=== PATIENT | female | born 1985 | race Two or more races ===

== ENCOUNTER 2016-10-22 05:01 | Inpatient (IN) | payer OTHER, MEDICAID ==
[2016-10-19 11:02] LABS: ABSOLUTE BASOPHILS # (AUTO) 0.1 10^3/uL (0.0-0.2); ABSOLUTE EOSINOPHILS # (AUTO) 0.1 10^3/uL (0.0-0.6); ABSOLUTE LYMPHOCYTES (AUTO) 1.8 10^3/uL (0.5-4.7); ABSOLUTE MONOCYTES (AUTO) 0.9 10^3/uL (0.1-1.4); ABSOLUTE NEUT (AUTO) 10.2 10^3/uL (1.7-8.2); BASOPHILS % (AUTO) 0.4 % (0-2); EOSINOPHILS % (AUTO) 0.7 % (0-6); HEMATOCRIT 30.9 % (36.0-47.0); HEMOGLOBIN 10.6 g/dL (12.0-15.5); HGB HCT DIFFERENCE 0.9; MEAN CORPUSCULAR HEMOGLOBIN 27.2 pg (27.0-33.4); MEAN CORPUSCULAR HGB CONC 34.2 g/dL (32.0-36.0); MEAN CORPUSCULAR VOLUME 80 fl (80-97); MONOCYTES % (AUTO) 7.2 % (3-13); RED BLOOD COUNT 3.88 10^6/uL (3.72-5.28); RED CELL DISTRIBUTION WIDTH 14.3 % (11.5-14.0); SEGMENTED NEUTROPHILS % (AUTO) 77.7 % (42-78); WHITE BLOOD COUNT 13.2 10^3/uL (4.0-10.5)
[2016-10-19 11:28] LABS: APPEARANCE,URINE SLIGHTLY-CLOUDY; BILIRUBIN,URINE NEGATIVE (NEGATIVE); GLUCOSE, URINE NEGATIVE (NEGATIVE); KETONES,URINE TRACE mg/dL (NEGATIVE); LEUKOCYTE ESTERASE,URINE NEGATIVE (NEGATIVE); NITRITE,URINE NEGATIVE (NEGATIVE); PROTEIN,URINE 30 mg/dL (NEGATIVE); URINE SPECIFIC GRAVITY 1.023; UROBILINOGEN,URINE NEGATIVE mg/dL (<2.0)
[2016-10-19 11:44] LABS: URINE BARBITURATES SCREEN NEGATIVE; URINE METHADONE SCREEN NEGATIVE; URINE OPIATES LOW NEGATIVE; URINE PHENCYCLIDINE SCREEN NEGATIVE
[~2016-10-22 05:01] MED LIST: CEFAZOLIN 2 GM/D5W RTU 2 GM/50 ML RTUPB IV PRN; RINGERS SOLUTION,LACTATED 1,000 ML IV PRN
[2016-10-22] MEDS ORDERED: CEFAZOLIN INJ 1 GM VIAL ONE (05:10)
[2016-10-22] MEDS ORDERED: ACETAMINOPHEN 100 ML IV ONE (07:08)
[2016-10-22] MEDS ORDERED: METHYLERGONOVINE MALEATE INJ/PF 0.2 MG/1 ML AMPULE ONE (07:08)
[2016-10-22] MEDS ORDERED: FENTANYL CITRATE INJ/PF 100 MCG/2 ML AMPUL ONE ×2 (07:08→09:50)
[2016-10-22] MEDS ORDERED: OXYTOCIN 10 UNIT/ML VIAL ONE (07:08)
[2016-10-22] MEDS ORDERED: MIDAZOLAM 2 MG/2 ML INJ ONE (07:08)
[2016-10-22] MEDS ORDERED: EPHEDRINE SULFATE INJ 50 MG/1 ML AMPULE ONE (07:09)
[2016-10-22] MEDS ORDERED: MEPERIDINE HCL/PF INJ 25 MG/1 ML DISP.SYRIN IV PRN (07:57)
[2016-10-22] MEDS ORDERED: PROMETHAZINE HCL INJ 25 MG/1 ML VIAL IV PRN ×3 (07:57→10:29)
[2016-10-22] MEDS ORDERED: FENTANYL CITRATE INJ/PF 100 MCG/2 ML AMPUL IV PRN ×2 (07:57)
[2016-10-22] MEDS ORDERED: ONDANSETRON HCL INJ/PF 4 MG/2 ML SDV IV PRN (07:57)
[2016-10-22] MEDS: DIPHENHYDRAMINE HCL 50 MG/ML VIAL IV PRN ×2 (09:10→10:07)
[2016-10-22] MEDS ORDERED: DIPHENHYDRAMINE HCL 50 MG/ML VIAL ONE (09:10)
[2016-10-22] MEDS: FENTANYL CITRATE INJ/PF 100 MCG/2 ML AMPUL IV PRN ×2 (09:50→10:20)
--- NOTE | 2016-10-22 10:01 | L&D Flow Sheet ---
LD Flowsheet Datetime Report Generated by CPN: 10/22/2016 10:00 Datetime: 10/22/2016 09:58 NBP Sys/Tracie/Mean (mmHg): 124 (QS system process) : 79 (QS system process) : 96 (QS system process) Pulse: 66 (QS system process) Datetime: 10/22/2016 09:57 Pulse: 69 (QS system process) SpO2 (%): 100 (QS system process) Datetime: 10/22/2016 09:52 Pulse: 76 (QS system process) SpO2 (%): 100 (QS system process) Datetime: 10/22/2016 09:47 Pulse: 63 (QS system process) SpO2 (%): 99 (QS system process) Datetime: 10/22/2016 09:45 Stage of : Recovery (Carmen JASON Woodson) Pain Scale: 3 (Carmen JASON Woodson) Pain Presence: Intermittent (Carmen Woodson RN) Pain Type: Cramping (Carmen Vitrano, RN) Pain Location: Abdomen (Carmen Vitrano, RN) Datetime: 10/22/2016 09:43 NBP Sys/Tracie/Mean (mmHg): 116 (QS system process) : 69 (QS system process) : 85 (QS system process) Pulse: 76 (QS system process) Respirations: 15 (Carmen Vitrano, RN) Datetime: 10/22/2016 09:42 Pulse: 82 (QS system process) SpO2 (%): 99 (QS system process) Datetime: 10/22/2016 09:37 Pulse: 82 (QS system process) SpO2 (%): 98 (QS system process) Datetime: 10/22/2016 09:32 Pulse: 69 (QS system process) SpO2 (%): 98 (QS system process) Datetime: 10/22/2016 09:30 Stage of : Recovery (Carmen Vitrano, RN) Pain Scale: 0 (Carmen Vitrano, RN) Pain Presence: None/Denies (Carmen Vitrano, RN) Pain Type: N/A (Carmen Vitrano, RN) Datetime: 10/22/2016 09:27 Pulse: 71 (QS system process) SpO2 (%): 98 (QS system process) Datetime: 10/22/2016 09:22 Pulse: 72 (QS system process) SpO2 (%): 99 (QS system process) Datetime: 10/22/2016 09:17 Pulse: 71 (QS system process) SpO2 (%): 98 (QS system process) Datetime: 10/22/2016 09:15 Stage of : Recovery (Carmen Vitrano, RN) Pain Scale: 0 (Carmen Vitrano, RN) Pain Presence: None/Denies (Carmen Vitrano, RN) Pain Type: N/A (Carmen Vitrano, RN) Datetime: 10/22/2016 09:12 NBP Sys/Tracie/Mean (mmHg): 125 (QS system process) : 66 (QS system process) : 88 (QS system process) Pulse: 73 (QS system process) Pulse: 67 (QS system process) Respirations: 16 (Carmen Vitrano, RN) SpO2 (%): 98 (QS system process) Datetime: 10/22/2016 09:07 NBP Sys/Tracie/Mean (mmHg): 130 (QS system process) : 69 (QS system process) : 92 (QS system process) Pulse: 67 (QS system process) Pulse: 74 (QS system process) Respirations: 16 (Carmen Vitrano, RN) SpO2 (%): 99 (QS system process) Datetime: 10/22/2016 09:02 NBP Sys/Tracie/Mean (mmHg): 132 (QS system process) : 67 (QS system process) : 91 (QS system process) Pulse: 73 (QS system process) Pulse: 75 (QS system process) Respirations: 16 (Carmen Vitrano, RN) SpO2 (%): 97 (QS system process) Temperature (F): 97.4 (Carmen Vitrano, RN) Temperature (C): 36.3 (QS system process) Temperature Route: Oral (Carmen Vitrano, RN) Datetime: 10/22/2016 09:00 Stage of : Recovery (Carmen Vitrano, RN) Pain Scale: 0 (Carmen Vitrano, RN) Pain Presence: None/Denies (Carmen Vitrano, RN) Pain Type: N/A (Carmen Vitrano, RN) Datetime: 10/22/2016 08:57 NBP Sys/Tracie/Mean (mmHg): 130 (QS system process) : 64 (QS system process) : 90 (QS system process) Pulse: 70 (QS system process) Pulse: 71 (QS system process) SpO2 (%): 98 (QS system process)
[2016-10-22] MEDS ORDERED: SIMETHICONE 80 MG TAB.CHEW PO PRN ×2 (10:29→12:33)
[2016-10-22] MEDS ORDERED: MEASLES,MUMPS&RUBELLA VACC/PF 0.5 ML VIAL SUBCUT PRN ×3 (10:29→12:37)
[2016-10-22] MEDS ORDERED: ACETAMINOPHEN 325 MG TABLET PO PRN ×2 (10:29→12:33)
[2016-10-22] MEDS ORDERED: OXYCODONE-ACETAMINOPHEN 5-325 MG TABLET PO PRN ×3 (10:29→12:33)
[2016-10-22] MEDS ORDERED: OXYTOCIN/NORMAL SALINE 1,000 ML IV PRN ×2 (10:29→12:37)
[2016-10-22] MEDS ORDERED: HYDROMORPHONE HCL INJ/PF 2 MG/ML AMPULE IV PRN ×2 (10:29→12:33)
[2016-10-22] MEDS ORDERED: HYDROMORPHONE HCL INJ/PF 2 MG/ML AMPULE ONE (10:38)
[2016-10-22] MEDS ORDERED: IBUPROFEN 800 MG TABLET PO SCH ×2 (12:00→18:00)
--- NOTE | 2016-10-22 12:01 | L&D Flow Sheet ---
LD Flowsheet Datetime Report Generated by CPN: 10/22/2016 12:00 Datetime: 10/22/2016 11:56 Pulse: 97 (QS system process) SpO2 (%): 99 (QS system process) Datetime: 10/22/2016 11:51 Pulse: 81 (QS system process) SpO2 (%): 98 (QS system process) Datetime: 10/22/2016 11:47 NBP Sys/Tracie/Mean (mmHg): 141 (QS system process) : 73 (QS system process) : 101 (QS system process) Pulse: 70 (QS system process) Datetime: 10/22/2016 11:46 Pulse: 70 (QS system process) SpO2 (%): 99 (QS system process) Datetime: 10/22/2016 10:51 Temperature (F): 97.5 (Carmen Vitrano, RN) Temperature (C): 36.4 (QS system process) Temperature Route: Oral (Carmen Vitrano, RN) Datetime: 10/22/2016 10:47 Pulse: 87 (QS system process) SpO2 (%): 100 (QS system process) Datetime: 10/22/2016 10:45 Vital Signs Stage of : Recovery (Carmen Vitrano, RN) Pain Pain Scale: 3 (Carmen Vitrano, RN) Pain Presence: Intermittent (Carmen Vitrano, RN) Pain Type: Cramping (Carmen Vitrano, RN) Pain Location: Abdomen (Carmen Vitrano, RN) Datetime: 10/22/2016 10:43 NBP Sys/Tracie/Mean (mmHg): 123 (QS system process) : 75 (QS system process) : 93 (QS system process) Pulse: 73 (QS system process) Respirations: 16 (Carmen Vitrano, RN) Datetime: 10/22/2016 10:42 Pulse: 80 (QS system process) SpO2 (%): 100 (QS system process) Datetime: 10/22/2016 10:37 Pulse: 73 (QS system process) SpO2 (%): 100 (QS system process) Datetime: 10/22/2016 10:32 Pulse: 70 (QS system process) SpO2 (%): 100 (QS system process) Datetime: 10/22/2016 10:30 Vital Signs Stage of : Recovery (Carmen Vitrano, RN) Pain Pain Scale: 3 (Carmen Vitrano, RN) Pain Presence: Intermittent (Carmen Vitrano, RN) Pain Type: Cramping (Carmen Vitrano, RN) Pain Location: Abdomen (Carmen Vitrano, RN) Datetime: 10/22/2016 10:28 NBP Sys/Tracie/Mean (mmHg): 128 (QS system process) : 80 (QS system process) : 96 (QS system process) Pulse: 68 (QS system process) Respirations: 16 (Carmen Vitrano, RN) Datetime: 10/22/2016 10:27 Pulse: 72 (QS system process) SpO2 (%): 100 (QS system process) Datetime: 10/22/2016 10:22 Pulse: 69 (QS system process) SpO2 (%): 100 (QS system process) Datetime: 10/22/2016 10:20 Pain Pain Scale: 3 (Carmen Vitrano, RN) Pain Presence: Intermittent (Carmen Vitrano, RN) Pain Type: Cramping; Dull (Carmen Vitrano, RN) Pain Location: Abdomen (Carmen Vitrano, RN) Datetime: 10/22/2016 10:17 Pulse: 67 (QS system process) SpO2 (%): 100 (QS system process) Datetime: 10/22/2016 10:15 Vital Signs Stage of : Recovery (Carmen Vitrano, RN) Pain Pain Scale: 1 (Carmen Vitrano, RN) Pain Presence: Intermittent (Carmen Vitrano, RN) Pain Type: Cramping (Carmen Vitrano, RN) Pain Location: Abdomen (Carmen Vitrano, RN) Datetime: 10/22/2016 10:13 NBP Sys/Tracie/Mean (mmHg): 118 (QS system process) : 77 (QS system process) : 93 (QS system process) Pulse: 80 (QS system process) Respirations: 16 (Carmen Vitrano, RN) Datetime: 10/22/2016 10:12 Pulse: 67 (QS system process) SpO2 (%): 100 (QS system process) Datetime: 10/22/2016 10:07 Pulse: 76 (QS system process) SpO2 (%): 99 (QS system process) Datetime: 10/22/2016 10:02 Pulse: 71 (QS system process) SpO2 (%): 99 (QS system process) Datetime: 10/22/2016 10:00 Vital Signs Stage of : Recovery (Carmen Woodson, RN) Pain Pain Scale: 1 (Carmen Woodson RN) Pain Presence: Intermittent (Carmen Woodson RN) Pain Type: Cramping (Carmen Woodson RN) Pain Location: Abdomen (Carmen Woodson RN)
[2016-10-22] MEDS: OXYCODONE-ACETAMINOPHEN 5-325 MG TABLET PO PRN ×3 (12:11→22:08)
[2016-10-22] MEDS ORDERED: DIPH/PERTUSS(ACELL)/TETANUS VAC/PF 0.5 ML SYR (>=10YO) IM PRN ×2 (12:33→12:37)
[2016-10-22] MEDS ORDERED: OXYTOCIN/NORMAL SALINE 20 UNIT/1,000 ML RTUINJ INJ PRN (12:33)
[2016-10-22] MEDS ORDERED: PROMETHAZINE HCL INJ 25 MG/1 ML VIAL IM PRN (12:33)
[2016-10-22] MEDS ORDERED: DIBUCAINE 1% OINTMENT 28 GM TP PRN (12:37)
[2016-10-22] MEDS ORDERED: BENZOCAINE/MENTHOL AEROSOL SPRAY 56 ML TOP PRN (12:37)
[2016-10-22] MEDS ORDERED: ACETAMINOPHEN WITH CODEINE #3 TABLET PO PRN ×2 (12:37)
[2016-10-22] MEDS ORDERED: ZOLPIDEM TARTRATE 5 MG TABLET PO PRN (12:37)
[2016-10-22] MEDS: KETOROLAC TROMETHAMINE INJ/PF 30 MG/1 ML SDV IV SCH ×2 (13:20→21:24)
[2016-10-22] MEDS ORDERED: ONDANSETRON HCL INJ/PF 4 MG/2 ML SDV ONE (14:36)
[2016-10-22] MEDS ORDERED: DOCUSATE SODIUM 100 MG CAPSULE PO SCH ×2 (18:00)
[2016-10-22] MEDS: FERROUS SULFATE 325 MG TABLET PO SCH (18:08)
[2016-10-22] MEDS: DOCUSATE SODIUM 100 MG CAPSULE PO SCH (18:08)
--- NOTE | 2016-10-22 19:01 | L&D Flow Sheet ---
LD Flowsheet Datetime Report Generated by CPN: 10/22/2016 19:00 Datetime: 10/22/2016 11:56 Pulse: 97 (QS system process) SpO2 (%): 99 (QS system process) Datetime: 10/22/2016 11:51 Pulse: 81 (QS system process) SpO2 (%): 98 (QS system process) Datetime: 10/22/2016 11:47 NBP Sys/Tracie/Mean (mmHg): 141 (QS system process) : 73 (QS system process) : 101 (QS system process) Pulse: 70 (QS system process) Datetime: 10/22/2016 11:46 Pulse: 70 (QS system process) SpO2 (%): 99 (QS system process) Datetime: 10/22/2016 10:51 Temperature (F): 97.5 (Carmen Vitrano, RN) Temperature (C): 36.4 (QS system process) Temperature Route: Oral (Carmen Vitrano, RN) Datetime: 10/22/2016 10:47 Pulse: 87 (QS system process) SpO2 (%): 100 (QS system process) Datetime: 10/22/2016 10:45 Vital Signs Stage of : Recovery (Carmen Vitrano, RN) Pain Pain Scale: 3 (Carmen Vitrano, RN) Pain Presence: Intermittent (Carmen Vitrano, RN) Pain Type: Cramping (Carmen Vitrano, RN) Pain Location: Abdomen (Carmen Vitrano, RN) Datetime: 10/22/2016 10:43 NBP Sys/Tracie/Mean (mmHg): 123 (QS system process) : 75 (QS system process) : 93 (QS system process) Pulse: 73 (QS system process) Respirations: 16 (Carmen Vitrano, RN) Datetime: 10/22/2016 10:42 Pulse: 80 (QS system process) SpO2 (%): 100 (QS system process) Datetime: 10/22/2016 10:37 Pulse: 73 (QS system process) SpO2 (%): 100 (QS system process) Datetime: 10/22/2016 10:32 Pulse: 70 (QS system process) SpO2 (%): 100 (QS system process) Datetime: 10/22/2016 10:30 Vital Signs Stage of : Recovery (Carmen Vitrano, RN) Pain Pain Scale: 3 (Carmen Vitrano, RN) Pain Presence: Intermittent (Carmen Vitrano, RN) Pain Type: Cramping (Carmen Vitrano, RN) Pain Location: Abdomen (Carmen Vitrano, RN) Datetime: 10/22/2016 10:28 NBP Sys/Tracie/Mean (mmHg): 128 (QS system process) : 80 (QS system process) : 96 (QS system process) Pulse: 68 (QS system process) Respirations: 16 (Carmen Vitrano, RN) Datetime: 10/22/2016 10:27 Pulse: 72 (QS system process) SpO2 (%): 100 (QS system process) Datetime: 10/22/2016 10:22 Pulse: 69 (QS system process) SpO2 (%): 100 (QS system process) Datetime: 10/22/2016 10:20 Pain Pain Scale: 3 (Carmen Vitrano, RN) Pain Presence: Intermittent (Carmen Vitrano, RN) Pain Type: Cramping; Dull (Carmen Vitrano, RN) Pain Location: Abdomen (Carmen Vitrano, RN) Datetime: 10/22/2016 10:17 Pulse: 67 (QS system process) SpO2 (%): 100 (QS system process) Datetime: 10/22/2016 10:15 Vital Signs Stage of : Recovery (Carmen Vitrano, RN) Pain Pain Scale: 1 (Carmen Vitrano, RN) Pain Presence: Intermittent (Carmen Vitrano, RN) Pain Type: Cramping (Carmen Vitrano, RN) Pain Location: Abdomen (Carmen Vitrano, RN) Datetime: 10/22/2016 10:13 NBP Sys/Tracie/Mean (mmHg): 118 (QS system process) : 77 (QS system process) : 93 (QS system process) Pulse: 80 (QS system process) Respirations: 16 (Carmen Vitrano, RN) Datetime: 10/22/2016 10:12 Pulse: 67 (QS system process) SpO2 (%): 100 (QS system process) Datetime: 10/22/2016 10:07 Pulse: 76 (QS system process) SpO2 (%): 99 (QS system process) Datetime: 10/22/2016 10:02 Pulse: 71 (QS system process) SpO2 (%): 99 (QS system process) Datetime: 10/22/2016 10:00 Vital Signs Stage of : Recovery (Carmen Vitrano, RN) Pain Pain Scale: 1 (Carmen Vitrano, RN) Pain Presence: Intermittent (Carmen Vitrano, RN) Pain Type: Cramping (Carmen Vitrano, RN) Pain Location: Abdomen (Carmen Vitrano, RN) Datetime: 10/22/2016 09:58 NBP Sys/Tracie/Mean (mmHg): 124 (QS system process) : 79 (QS system process) : 96 (QS system process) Pulse: 66 (QS system process) Respirations: 16 (Carmen Vitrano, RN) Datetime: 10/22/2016 09:57 Pulse: 69 (QS system process) SpO2 (%): 100 (QS system process) Datetime: 10/22/2016 09:52 Pulse: 76 (QS system process) SpO2 (%): 100 (QS system process) Datetime: 10/22/2016 09:47 Pulse: 63 (QS system process) SpO2 (%): 99 (QS system process) Datetime: 10/22/2016 09:45 Vital Signs Stage of : Recovery (Carmen Vitrano, RN) Pain Pain Scale: 3 (Carmen Vitrano, RN) Pain Presence: Intermittent (Carmen Vitrano, RN) Pain Type: Cramping (Carmen Vitrano, RN) Pain Location: Abdomen (Carmen Vitrano, RN) Datetime: 10/22/2016 09:43 NBP Sys/Tracie/Mean (mmHg): 116 (QS system process) : 69 (QS system process) : 85 (QS system process) Pulse: 76 (QS system process) Respirations: 15 (Carmen Vitrano, RN) Datetime: 10/22/2016 09:42 Pulse: 82 (QS system process) SpO2 (%): 99 (QS system process) Datetime: 10/22/2016 09:37 Pulse: 82 (QS system process) SpO2 (%): 98 (QS system process) Datetime: 10/22/2016 09:32 Pulse: 69 (QS system process) SpO2 (%): 98 (QS system process) Datetime: 10/22/2016 09:30 Vital Signs Stage of : Recovery (Carmen Vitrano, RN) Pain Pain Scale: 0 (Carmen Vitrano, RN) Pain Presence: None/Denies (Carmen Vitrano, RN) Pain Type: N/A (Carmen Vitrano, RN) Datetime: 10/22/2016 09:27 Pulse: 71 (QS system process) SpO2 (%): 98 (QS system process) Datetime: 10/22/2016 09:22 Pulse: 72 (QS system process) SpO2 (%): 99 (QS system process) Datetime: 10/22/2016 09:17 Pulse: 71 (QS system process) SpO2 (%): 98 (QS system process) Datetime: 10/22/2016 09:15 Vital Signs Stage of : Recovery (Carmen Vitrano, RN) Pain Pain Scale: 0 (Carmen Vitrano, RN) Pain Presence: None/Denies (Carmen Vitrano, RN) Pain Type: N/A (Carmen Vitrano, RN) Datetime: 10/22/2016 09:12 NBP Sys/Tracie/Mean (mmHg): 125 (QS system process) : 66 (QS system process) : 88 (QS system process) Pulse: 73 (QS system process) Pulse: 67 (QS system process) Respirations: 16 (Carmen Vitrano, RN) SpO2 (%): 98 (QS system process) Datetime: 10/22/2016 09:07 NBP Sys/Tracie/Mean (mmHg): 130 (QS system process) : 69 (QS system process) : 92 (QS system process) Pulse: 67 (QS system process) Pulse: 74 (QS system process) Respirations: 16 (Carmen Vitrano, RN) SpO2 (%): 99 (QS system process) Datetime: 10/22/2016 09:02 NBP Sys/Tracie/Mean (mmHg): 132 (QS system process) : 67 (QS system process) : 91 (QS system process) Pulse: 73 (QS system process) Pulse: 75 (QS system process) Respirations: 16 (Carmen Vitrano, RN) SpO2 (%): 97 (QS system process) Temperature (F): 97.4 (Carmen Vitrano, RN) Temperature (C): 36.3 (QS system process) Temperature Route: Oral (Carmen Vitrano, RN) Datetime: 10/22/2016 09:00 Vital Signs Stage of : Recovery (Carmen Vitrano, RN) Pain Pain Scale: 0 (Carmen Vitrano, RN) Pain Presence: None/Denies (Carmen Vitrano, RN) Pain Type: N/A (Carmen Vitrano, RN) Datetime: 10/22/2016 08:57 NBP Sys/Tracie/Mean (mmHg): 130 (QS system process) : 64 (QS system process) : 90 (QS system process) Pulse: 70 (QS system process) Pulse: 71 (QS system process) SpO2 (%): 98 (QS system process)
[2016-10-23] MEDS: OXYCODONE-ACETAMINOPHEN 5-325 MG TABLET PO PRN ×5 (02:03→22:52)
[2016-10-23] MEDS: KETOROLAC TROMETHAMINE INJ/PF 30 MG/1 ML SDV IV SCH (05:34)
--- NOTE | 2016-10-23 06:01 | L&D General Admission ---
General Admit Datetime Report Generated by CPN: 10/23/2016 06:00 INFORMATION Patient Age: 31 (09/03/2016 17:21:QS system process) CARE Height (in): 62 (10/23/2016 05:46:QS system process) ALLERGIES Medication Allergies: hydrocodone bitartrate/MO/itching (01/20/2014); morphine/MO/became hot (01/20/2014); pertussis vaccine,adsorbed/SV/Anaphylaxis (10/19/2016); banana/SV/Anaphylaxis (10/19/2016); latex/Generalized demetria (10/19/2016) (10/19/2016 09:55:QS system process) DEMOGRAPHICS Address: [address] [place] [id number] (10/18/2016 07:51:QS system process) Zipcode: [phone] (10/18/2016 07:51:QS system process) Home (09/03/2016 17:21:QS system process) Work (09/03/2016 17:21:QS system process) SSN: [id number] (09/03/2016 17:21:QS system process) Next of Kin Name: FRANKIE LOWRY (09/03/2016 17:21:QS system process) Next of Kin (09/03/2016 17:21:QS system process) Next of Kin Relationship: OR (09/03/2016 17:21:QS system process) Date of : 1985 (09/03/2016 17:21:QS system process) Marital Status: Single (09/03/2016 17:21:QS system process) Sex: Female (09/03/2016 17:21:QS system process) Race: Other (09/03/2016 17:21:QS system process) Ethnicity: or (09/03/2016 17:21:QS system process) Lutheran: Sikh (09/03/2016 17:21:QS system process) Feeding Preference: Breast (10/22/2016 14:54:Demi Stroud RN) Benefit of Breast Feed Discussed: Yes (10/22/2016 14:54:Demi Stroud RN) LABS Hemoglobin: 10.6 L (10/19/2016 10:15:QS system process) Hematocrit: 30.9 L (10/19/2016 10:15:QS system process) MCV: 80 (10/19/2016 10:15:QS system process)
[2016-10-23 07:37] LABS: HEMATOCRIT 27.7 % (36.0-47.0); HEMOGLOBIN 9.4 g/dL (12.0-15.5); HGB HCT DIFFERENCE 0.5; MEAN CORPUSCULAR HEMOGLOBIN 27.2 pg (27.0-33.4); MEAN CORPUSCULAR VOLUME 80 fl (80-97); RED BLOOD COUNT 3.47 10^6/uL (3.72-5.28); RED CELL DISTRIBUTION WIDTH 14.8 % (11.5-14.0); WHITE BLOOD COUNT 14.1 10^3/uL (4.0-10.5)
--- NOTE | 2016-10-23 09:05 | PDOC PROGRESS REPORT ---
Subjective-OB Subjective: Post Delivery Day: 31 year old. Denies any needs at this time. Pt doing well, no concerns. well, regular diet, voiding without difficulty. She reports light bleeding and +flatus. Physical Exam (OB) Vital Signs: Temp Pulse Resp BP Pulse Ox 97.7 F 81 20 111/72 100 10/23/16 07:52 10/23/16 07:52 10/23/16 07:52 10/23/16 07:52 10/23/16 07:52 Intake & Output 10/22/16 10/23/16 10/24/16 06:59 06:59 06:59 Intake Total 2200 Output Total 1250 Balance 950 Weight 215 kg - Dressing Removed: Yes Incision: Well Approximated Closure Type: Sutures - Bilateral Tubal Ligation Dressing Removed: Yes Site: Well Approximated - Lochia Lochia Amount: Scant < 10 ml Lochia Color: Rubra/Red - Abdomen Description: Soft, Round Hernia Present: No Fundal Description: Firm, Midline Fundal Height: u/u - u/2 Objective-Diagnostic Laboratory: 10/23/16 06:41 10/23/16 06:41 WBC 14.1 H RBC 3.47 L Hgb 9.4 L Hct 27.7 L MCV 80 MCH 27.2 MCHC 34.0 RDW 14.8 H Plt Count 284 Assessment and Plan(PN) - Assessment and Plan (1) delivery delivered Is this a current diagnosis for this admission?: Yes - Time Spent with Patient Time with patient: Less than 15 minutes Medications reviewed and adjusted accordingly: Yes - Disposition Anticipated Discharge: Home Within: within 48 hours
[2016-10-23] MEDS: FERROUS SULFATE 325 MG TABLET PO SCH ×2 (09:36→17:45)
[2016-10-23] MEDS: PRENATAL VITAMIN W-O CA NO5/FE FUMARATE/FA CAPSULE PO SCH ×2 (09:36→09:38)
[2016-10-23] MEDS: DOCUSATE SODIUM 100 MG CAPSULE PO SCH ×2 (09:36→17:45)
[2016-10-23] MEDS: TOPIRAMATE 25 MG TABLET PO SCH (09:37)
[2016-10-23] MEDS: SENNOSIDES/DOCUSATE 8.6-50 MG 1 EACH TABLET PO SCH (09:37)
[2016-10-23] MEDS ORDERED: PRENATAL VITAMIN W-O CA NO5/FE FUMARATE/FA CAPSULE PO SCH (10:00)
[2016-10-23] MEDS: IBUPROFEN 800 MG TABLET PO SCH ×2 (13:09→21:29)
[2016-10-24] MEDS: IBUPROFEN 800 MG TABLET PO SCH ×2 (05:14→13:13)
[2016-10-24] MEDS: OXYCODONE-ACETAMINOPHEN 5-325 MG TABLET PO PRN ×2 (06:21→11:00)
[2016-10-24] MEDS: DOCUSATE SODIUM 100 MG CAPSULE PO SCH (09:31)
[2016-10-24] MEDS: SENNOSIDES/DOCUSATE 8.6-50 MG 1 EACH TABLET PO SCH (09:32)
[2016-10-24] MEDS: FERROUS SULFATE 325 MG TABLET PO SCH (09:32)
[2016-10-24] MEDS: PRENATAL VITAMIN W-O CA NO5/FE FUMARATE/FA CAPSULE PO SCH ×2 (09:32→09:45)
[2016-10-24] MEDS: TOPIRAMATE 25 MG TABLET PO SCH (09:32)
[2016-10-24] MEDS ORDERED: MAGNESIUM HYDROXIDE SUSP 30 ML UDCUP PO PRN (11:34)
--- NOTE | 2016-10-24 11:51 | PDOC DISCHARGE SUMMARY ---
Final Diagnosis Discharge Date: 10/24/16 - Final Diagnosis (1) Status post repeat low transverse section Is this a current diagnosis for this admission?: Yes (2) Tubal ligation status Is this a current diagnosis for this admission?: Yes (3) Term delivered Is this a current diagnosis for this admission?: Yes (4) Anemia Is this a current diagnosis for this admission?: Yes Discharge Data - Discharge Medication Home Medications: Topiramate [Topamax 100 mg Tablet] 100 mg PO BID 03/20/16 Vit W-Ca,Fe,FA(<1 mg) [ Vitamins] 1 each PO DAILY 10/19/16 Docusate Sodium [Colace 100 mg Capsule] 100 mg PO BID #60 capsule 10/24/16 Ferrous Sulfate [Feosol 325 mg Tablet] 325 mg PO BID #60 tablet 10/24/16 Ibuprofen [Motrin 800 mg Tablet] 800 mg PO Q8HP PRN #90 tablet 10/24/16 Oxycodone HCl/Acetaminophen [Percocet 5-325 mg Tablet] 1 tab PO Q4HP PRN #30 tablet 10/24/16 Reason(s) for Admission: Ceasarean Section-Repeat, Tubal Ligation Procedures: Ultrasound Intrapartum Procedure(s): : Low Cervical, Transverse - Data Baby 1 Female Home with Mother: Yes Complications: No - Diagnosis Test Laboratory: Temp Pulse Resp BP Pulse Ox 98.2 F 88 16 115/57 L 96 10/24/16 09:08 10/24/16 09:08 10/24/16 09:08 10/24/16 09:08 10/24/16 09:08 10/19/16 10/19/16 10/23/16 10:15 10:15 06:41 RBC 3.88 3.47 L Hgb 10.6 L 9.4 L Hct 30.9 L 27.7 L Urine Opiates Screen NEGATIVE - Discharge information/Instructions Discharge Activity: Activity As Tolerated, Balance Activity w/Rest, No Driving, No Lifting Over 10 Pounds, No Lifting/Push/Pulling, Pelvic Rest, Slowly Increase Activity Discharge Diet: Regular Disposition: HOME, SELF-CARE Follow up with: [facility] in: 1, Weeks - incision check Physical Exam (OB) Vital Signs: Temp Pulse Resp BP Pulse Ox 98.2 F 88 16 115/57 L 96 10/24/16 09:08 10/24/16 09:08 10/24/16 09:08 10/24/16 09:08 10/24/16 09:08 Intake & Output 10/23/16 10/24/16 10/25/16 06:59 06:59 06:59 Intake Total 2200 Output Total 1250 Balance 950 - General General Appearance: Appears well In distress: None - Dressing Removed: Yes Incision: Open Closure Type: Sutures - Bilateral Tubal Ligation Dressing Removed: Yes Site: Well Approximated - Lochia Lochia Amount: Small 10-25 ml Lochia Color: Rubra/Red - Abdomen Description: Soft, Round Hernia Present: No Fundal Description: Firm, Midline Fundal Height: u/u - u/2 - Respiratory Respiratory Status: No respiratory distress - Extremities Upper extremity: Normal inspection Lower extremities: Normal inspection - Neurological Cognition: Normal Orientation: AAOx4 - Psychological Associated symptoms: Normal affect, Normal mood - bonding well with baby
[2016-10-24 12:48] VITALS: BP 130/70
--- NOTE | 2016-10-25 10:48 | Operative Report ---
Operative Report DATE OF SURGERY: 10/22/16 OPERATION: RELTCS with BTL ANESTHESIA: Spinal PROCEDURE: PREOPERATIVE DIAGNOSIS: undelivered at 39 weeks, multiparity, Undesired Fertility POSTOPERATIVE DIAGNOSIS: Same as above delivered Procedure: RELTCS with BTL (Filschie Clips) Acute Care Assistant:[None] Anesthesia: Spinal Anesthesia provider: [Dr. Flowers, Zari Ogden, BRUSH FINISHER] Estimated blood loss: [700ml] Urine output: [300ml] IV fluids: [1100ml] Complications: [None] Specimens: [None] Findings: [VFI delivered from cephalic presentation, no nuchal cord. weight 6# 12oz, Apgars 8/9, Delivery time 0809.] Indications: [31yo at 39wks brook presents for RELTCS and Bilateral Tubal Ligation due to history of prior section and undesired fertility. Risks, benefits, alternatives reviewed with patient and she desires to proceed. She declined TOLAC. ] Procedure: The patient was taken to the operating room where spinal anesthesia was obtained and found to be adequate. She was then prepped and draped in the normal sterile fashion and placed in the dorsal supine position with a leftward tilt. A Pfannenstiel skin incision was then made and carried through to the underlying layers of the fascia with the scalpel. The fascia was incised in the midline and the incision extended laterally with the Feldman scissors. The superior aspect of the fascial incision was then grasped with [place] clamps elevated and the underlying rectus muscles dissected off [bluntly]. Attention was then turned to the inferior aspect of the fascial incision which in a similar fashion was grasped, tented up with [place] clamps, and the rectus muscles dissected off [bluntly]. The rectus muscles were then in the midline and the peritoneum at the amount identified and entered [bluntly]. The peritoneal incision was then extended superiorly and inferiorly with good visualization of the bladder. The bladder blade was inserted and the vesicouterine peritoneum identified grasped with Indian pickups and entered sharply with the Metzenbaum scissors. This incision was then extended laterally with the Metzenbaum scissors and a bladder flap created digitally. The bladder blade was then reinserted and the lower uterine segment incised in a transverse fashion with the scalpel. The uterine incision was then extended bluntly. The bladder blade was removed and the 's head was delivered from cephalic presentation atraumatically. The nose and mouth were suctioned and the cord doubly clamped and cut. And the was handed off to waiting pediatricians. The placenta was then delivered spontaneously and the uterus exteriorized and cleared of all clots and debris. The uterine incision was then repaired with 1- 0 Vicryl in a running locked fashion. A second layer of the same suture was used to obtain hemostasis via imbrication of the initial layer. The bladder flap was then repaired with 3-0 chromic in a running fashion. The uterus was returned to the patient's abdomen. The gutters were cleared of all clots and debris. All operative sites were noted to be hemostatic. The rectus muscles were reapproximated with interrupted 2-0 chromic. The fascia was reapproximated with 0 Vicryl in a running fashion from each lateral edge to the midline. The skin was closed with 3-0 Monocryl in a running subcuticular fashion with overlying Dermabond for additional dressing as well as wound closure. The patient tolerated the procedure well. Sponge lap needle and instrument counts are correct times 2. 2 g of Ancef were given prior to skin incision. The patient was taken to the recovery area awake and in stable condition.
== END 2016-10-24 14:03 | disposition home or self-care (01) | DRG 766 ==
LOC: 2S 05:01
PROVIDERS: ADMIT Student in an Organized Health Care Education/Training Program; ATTEND Student in an Organized Health Care Education/Training Program
PROC: 0UL70CZ Occlusion of Bilateral Fallopian Tubes with Extraluminal Device, Open Approach (ICD-10-PCS; 2016-10-22)
PROC: 10D00Z1 Extraction of Products of Conception, Low, Open Approach (ICD-10-PCS; principal; 2016-10-22 07:45)
DX: O34.211 Maternal care for low transverse scar from previous cesarean delivery (principal); O99.02 Anemia complicating childbirth; O99.334 Smoking (tobacco) complicating childbirth; F17.210 Nicotine dependence, cigarettes, uncomplicated; N85.8 Other specified noninflammatory disorders of uterus; Z3A.39 39 weeks gestation of pregnancy; Z37.0 Single live birth; Z30.2 Encounter for sterilization
CPT/HCPCS: 1961; 36415; 59025; 80307; 81001; 85025; 85027; 86850; 86900; 86901; 94799; J0131; J0690; J1170; J1200; J1885; J2210; J2250; J2405; J2590; J3010; J3490

== ENCOUNTER 2018-10-23 08:49 | Emergency (ER) | payer MEDICAID, OTHER ==
[2018-10-23] MEDS ORDERED: FENTANYL CITRATE INJ/PF 100 MCG/2 ML AMPUL IV ONE (10:35)
--- NOTE | 2018-10-23 10:38 | ER Document Report ---
ED Medical Screen (RME) - General Chief Complaint: Chest Pain Stated Complaint: CHEST PAIN Time Seen by Provider: 10/23/18 10:25 Mode of Arrival: Ambulatory Information source: Patient Notes: 33-year-old female presents emergency department with complaints of chest pain shortness of breath. Patient states that a week ago she injured herself at work. She states that she pulled a cabinet onto her left shoulder. She is been following up with Workmen's Comp. The Workmen's Comp. physician is ordering an MRI of the left shoulder. Patient states that today she began having pain in the left chest. She describes the pain as a sharp and stabbing sensation. Pain starts in the left anterior chest and wraps around to the back. She states that it is worse with deep breaths, movement, palpation. Patient states that the pain that she is having today feels different from when she injured herself a few days ago. She denies any nausea, vomiting, diaphoresis. Patient states that she feels very anxious because she feels like she is having a heart attack. Patient denies any history of hypertension, hyperlipidemia, coronary artery disease, diabetes. She does smoke. I have greeted and performed a rapid initial assessment of this patient. A comprehensive ED assessment and evaluation of the patient, analysis of test results and completion of the medical decision making process will be conducted by additional ED providers. PHYSICAL EXAMINATION: GENERAL: Well-appearing, well-nourished and in no acute distress. HEAD: Atraumatic, normocephalic. EYES: Pupils equal round extraocular movements intact, conjunctiva are normal. ENT: Nares patent NECK: Normal range of motion LUNGS: No respiratory distress Musculoskeletal: L anterior chest wall tenderness to palpation. NEUROLOGICAL: Normal speech, normal gait. PSYCH: Normal mood, normal affect. SKIN: Warm, Dry, normal turgor, no rashes or lesions noted. TRAVEL OUTSIDE OF THE [place] IN LAST 30 DAYS: No - Related Data Allergies/Adverse Reactions: banana Allergy (Severe, Verified 10/19/16 09:55) Anaphylaxis pertussis vaccine,adsorbed [Pertussis Vaccine,Adsorbed] Allergy (Severe, Verified 10/19/16 09:55) Anaphylaxis hydrocodone bitartrate [From Vicodin] Allergy (Intermediate, Verified 01/20/14 18:09) itching morphine [Morphine] Allergy (Intermediate, Verified 01/20/14 18:09) became hot latex Allergy (Verified 10/19/16 09:55) Generalized rash Past Medical History - Social History Chew tobacco use (# tins/day): No Frequency of alcohol use: None Drug Abuse: None - Past Medical History Cardiac Medical History: Reports: Hx Hypertension - preeclampsia with prior Denies: Hx Pulmonary Embolism, Hx Heart Murmur Pulmonary Medical History: Reports: Hx Asthma - as child Denies: Hx Sleep Apnea, Hx Tuberculosis Neurological Medical History: Reports: Hx Migraine. Denies: Hx Cerebrovascular Accident, Hx Seizures Endocrine Medical History: Denies: Hx Hyperthyroidism, Hx Hypothyroidism Renal/ Medical History: Reports: Hx Ovarian Cysts. Denies: Hx Kidney Stones, Hx Peritoneal Dialysis, Hx Pelvic Inflammatory Disease Malignancy Medical History: Denies: Hx Breast Cancer, Hx Cervical Cancer, Hx Ovarian Cancer GI Medical History: Reports: Hx Gastroesophageal Reflux Disease - during . Denies: Hx Hiatal Hernia, Hx Ulcer Musculoskeltal Medical History: Denies Hx Fibromyalgia Psychiatric Medical History: Reports: Hx Bipolar Disorder, Hx Depression Denies: Hx Post Traumatic Stress Disorder, Hx Schizophrenia Traumatic Medical History: Denies: Hx Fractures Infectious Medical History: Denies: Hx HIV, Hx MRSA Past Surgical History: Reports: Hx Section - x2, Hx Tubal Ligation - Immunizations Immunizations up to date: Yes Hx Diphtheria, Pertussis, Tetanus Vaccination: Yes Physical Exam - Vital signs Vitals: Temp Pulse Resp BP Pulse Ox 98.2 F 65 15 125/89 H 100 10/23/18 09:00 10/23/18 09:00 10/23/18 09:00 10/23/18 09:00 10/23/18 09:00 Course - Vital Signs Vital signs: Temp Pulse Resp BP Pulse Ox 98.2 F 65 15 125/89 H 100 10/23/18 09:00 10/23/18 09:00 10/23/18 09:00 10/23/18 09:00 10/23/18 09:00
--- NOTE | 2018-10-23 11:11 | EKG REPORT ---
SEVERITY:- OTHERWISE NORMAL ECG - SINUS TACHYCARDIA : Confirmed by: Que Adler 23-Oct-2018 11:11:04
[2018-10-23 11:30] LABS: ABSOLUTE BASOPHILS # (AUTO) 0.1 10^3/uL (0.0-0.2); ABSOLUTE EOSINOPHILS # (AUTO) 0.2 10^3/uL (0.0-0.6); ABSOLUTE LYMPHOCYTES (AUTO) 2.5 10^3/uL (0.5-4.7); ABSOLUTE MONOCYTES (AUTO) 0.4 10^3/uL (0.1-1.4); ABSOLUTE NEUT (AUTO) 5.7 10^3/uL (1.7-8.2); BASOPHILS % (AUTO) 0.8 % (0-2); EOSINOPHILS % (AUTO) 1.8 % (0-6); HEMATOCRIT 39.4 % (36.0-47.0); HEMOGLOBIN 13.5 g/dL (12.0-15.5); MEAN CORPUSCULAR HEMOGLOBIN 27.7 pg (27.0-33.4); MEAN CORPUSCULAR HGB CONC 34.4 g/dL (32.0-36.0); MEAN CORPUSCULAR VOLUME 81 fl (80-97); MONOCYTES % (AUTO) 4.6 % (3-13); PLATELET COUNT 392 10^3/uL (150-450); RED BLOOD COUNT 4.89 10^6/uL (3.72-5.28); RED CELL DISTRIBUTION WIDTH 14.1 % (11.5-14.0); SEGMENTED NEUTROPHILS % (AUTO) 64.8 % (42-78); TOTAL CELLS COUNTED % (AUTO) 100 %; WHITE BLOOD COUNT 8.8 10^3/uL (4.0-10.5)
[2018-10-23 11:33] LABS: AMORPHOUS SEDIMENT,URINE TRACE /HPF; APPEARANCE,URINE SLIGHTLY-CLOUDY; BILIRUBIN,URINE NEGATIVE (NEGATIVE); COLOR,URINE YELLOW; GLUCOSE, URINE NEGATIVE (NEGATIVE); KETONES,URINE TRACE mg/dL (NEGATIVE); LEUKOCYTE ESTERASE,URINE TRACE (NEGATIVE); NITRITE,URINE NEGATIVE (NEGATIVE); PROTEIN,URINE NEGATIVE (NEGATIVE); URINE SPECIFIC GRAVITY 1.006; UROBILINOGEN,URINE NEGATIVE mg/dL (<2.0)
--- NOTE | 2018-10-23 11:42 | RADIOLOGY REPORT (SQ) ---
EXAM DESCRIPTION: CHEST SINGLE VIEW COMPLETED DATE/TIME: 10/23/2018 11:29 am REASON FOR STUDY: shortness of breath COMPARISON: Chest films 01/20/2014, 01/22/2008 EXAM PARAMETERS: NUMBER OF VIEWS: One view. TECHNIQUE: Single frontal radiographic view of the chest acquired. RADIATION DOSE: NA LIMITATIONS: None. FINDINGS: LUNGS AND PLEURA: No opacities, masses or pneumothorax. No pleural effusion. MEDIASTINUM AND HILAR STRUCTURES: No masses. Contour normal. HEART AND VASCULAR STRUCTURES: Heart normal in size. Normal vasculature. BONES: No acute findings. HARDWARE: None in the chest. OTHER: No other significant finding. IMPRESSION: NO ACUTE RADIOGRAPHIC FINDING IN THE CHEST. TECHNICAL DOCUMENTATION: JOB ID: [id number]- All Rights Reserved Reading location - IP/workstation name: [email or web address]
[2018-10-23 11:45] LABS: ALANINE AMINOTRANSFERASE 16 U/L (9-52); ALBUMIN 4.8 g/dL (3.5-5.0); ALKALINE PHOSPHATASE 83 U/L (38-126); ANION GAP 13 (5-19); ASPARTATE AMINO TRANSFERASE 21 U/L (14-36); BILIRUBIN,DIRECT 0.2 mg/dL (0.0-0.4); BILIRUBIN,TOTAL 0.3 mg/dL (0.2-1.3); BLOOD UREA NITROGEN 8 mg/dL (7-20); CARBON DIOXIDE 22 mmol/L (22-30); CHLORIDE 111 mmol/L (98-107); GLUCOSE 88 mg/dL (75-110); POTASSIUM 4.8 mmol/L (3.6-5.0); SODIUM 145.6 mmol/L (137-145); TOTAL PROTEIN 8.2 g/dL (6.3-8.2)
--- NOTE | 2018-10-23 11:55 | ER Document Report ---
ED General - General Chief Complaint: Chest Pain Stated Complaint: CHEST PAIN Time Seen by Provider: 10/23/18 10:25 Mode of Arrival: Ambulatory Information source: Patient TRAVEL OUTSIDE OF THE [place] IN LAST 30 DAYS: No - HPI Patient complains to provider of: Chest pain Onset: This morning Onset/Duration: Sudden, Better Quality of pain: Pressure Severity: Moderate Associated symptoms: Shortness of breath Exacerbated by: Denies Relieved by: Denies Similar symptoms previously: Yes - States she has had anxiety attacks in the past that feels similar Notes: Patient presents to the emergency department for evaluation of chest pain. She describes it as a pressure with radiation to the back. She did have some associated shortness of breath. She states she woke with it, and it worsened without any clear aggravating factors. It is also improved without any clear alleviating factors. She states it feels similar to her anxiety in the past. She admits to depression as well as increased stress at work. She is taking her medications as prescribed. She denies any suicidal or homicidal ideation. - Related Data Allergies/Adverse Reactions: banana Allergy (Severe, Verified 10/19/16 09:55) Anaphylaxis pertussis vaccine,adsorbed [Pertussis Vaccine,Adsorbed] Allergy (Severe, Verified 10/19/16 09:55) Anaphylaxis hydrocodone bitartrate [From Vicodin] Allergy (Intermediate, Verified 01/20/14 18:09) itching morphine [Morphine] Allergy (Intermediate, Verified 01/20/14 18:09) became hot latex Allergy (Verified 10/19/16 09:55) Generalized rash Home Medications: List reviewed, please see attached Past Medical History - General Information source: Patient - Social History Smoking Status: Current Every Day Smoker Chew tobacco use (# tins/day): No Frequency of alcohol use: None Drug Abuse: None Family History: Reviewed & Not Pertinent, DM, Hypertension Patient has suicidal ideation: No Patient has homicidal ideation: No - Past Medical History Cardiac Medical History: Reports: Hx Hypertension - preeclampsia with prior Denies: Hx Pulmonary Embolism, Hx Heart Murmur Pulmonary Medical History: Reports: Hx Asthma - as child Denies: Hx Sleep Apnea, Hx Tuberculosis Neurological Medical History: Reports: Hx Migraine. Denies: Hx Cerebrovascular Accident, Hx Seizures Endocrine Medical History: Denies: Hx Hyperthyroidism, Hx Hypothyroidism Renal/ Medical History: Reports: Hx Ovarian Cysts. Denies: Hx Kidney Stones, Hx Peritoneal Dialysis, Hx Pelvic Inflammatory Disease Malignancy Medical History: Denies: Hx Breast Cancer, Hx Cervical Cancer, Hx Ovarian Cancer GI Medical History: Reports: Hx Gastroesophageal Reflux Disease - during . Denies: Hx Hiatal Hernia, Hx Ulcer Musculoskeletal Medical History: Denies Hx Fibromyalgia Psychiatric Medical History: Reports: Hx Bipolar Disorder, Hx Depression Denies: Hx Post Traumatic Stress Disorder, Hx Schizophrenia Traumatic Medical History: Denies: Hx Fractures Infectious Medical History: Denies: Hx HIV, Hx MRSA Past Surgical History: Reports: Hx Section - x2, Hx Tubal Ligation - Immunizations Immunizations up to date: Yes Hx Diphtheria, Pertussis, Tetanus Vaccination: Yes Hx Pneumococcal Vaccination: 06/16/13 Review of Systems - Review of Systems Constitutional: No symptoms reported EENT: No symptoms reported Cardiovascular: Chest pain Respiratory: Short of breath Gastrointestinal: No symptoms reported Genitourinary: No symptoms reported Female Genitourinary: No symptoms reported Skin: No symptoms reported Neurological/Psychological: Depression - Patient states this is stable, Anxiety Physical Exam - Vital signs Vitals: Temp Pulse Resp BP Pulse Ox 98.2 F 65 15 125/89 H 100 10/23/18 09:00 10/23/18 09:00 10/23/18 09:00 10/23/18 09:00 10/23/18 09:00 Interpretation: Normal - General General appearance: Appears well In distress: None - HEENT Head: Normocephalic, Atraumatic Pupils: PERRL - Respiratory Respiratory status: No respiratory distress Chest status: Tender - Tender to the left of the second and third intercostal space Breath sounds: Normal - Cardiovascular Rhythm: Regular Murmur: No - Abdominal Inspection: Normal Bowel sounds: Normal Tenderness: Nontender - Extremities General lower extremity: Normal inspection, Nontender, Normal color - Neurological Neuro grossly intact: Yes Orientation: AAOx4 - Psychological Associated symptoms: Normal affect, Normal mood - Skin Skin Temperature: Warm Skin Moisture: Dry Course - Re-evaluation Re-evalutation: 10/23/18 12:29 Patient reevaluated. All of her pain is resolved. She has a normal EKG. She has normal cardiac enzymes. We discussed at great length the possible etiologies of the chest pain. She voiced understanding to the fact that I cannot entirely rule out the existence of coronary artery disease. Her only significant risk factor is smoking. I strongly encouraged her to quit smoking. She voiced understanding to these concerns. We will have her follow-up with her primary care physician next week. She is to return to the emergency department with worsening or new concerning symptoms of any sort. 10/23/18 12:31 - Vital Signs Vital signs: Temp Pulse Resp BP Pulse Ox 98.2 F 65 15 125/89 H 100 10/23/18 09:00 10/23/18 09:00 10/23/18 09:00 10/23/18 09:00 10/23/18 09:00 - Laboratory Result Diagrams: 10/23/18 10:54 10/23/18 10:54 Laboratory results interpreted by me: 10/23/18 10/23/18 10/23/18 10:54 10:54 10:54 RDW 14.1 H Sodium 145.6 H Chloride 111 H Urine Ketones TRACE H Urine Blood SMALL H Ur Leukocyte Esterase TRACE H - Diagnostic Test Radiology reviewed: Image reviewed, Reports reviewed - EKG Interpretation by Me EKG shows normal: Sinus rhythm Rate: Normal Additional EKG results interpreted by me: 10/23/18 11:57 EKG interpreted by myself as showing a sinus mechanism with a rate of 85 bpm. Normal axis and intervals, no acute ST changes concerning for ischemia or infarction. Discharge - Discharge Clinical Impression: Chest pain Qualifiers: Chest pain type: unspecified Qualified Code(s): R07.9 - Chest pain, unspecified Condition: Good Disposition: HOME, SELF-CARE Instructions: Chest Wall Pain ([facility]), Chest Pain of Unclear Cause ([facility]) Forms: Smoking Cessation Education
[2018-10-23 13:22] VITALS: BP 105/79
== END 2018-10-23 12:10 | disposition home or self-care (01) ==
LOC: ER 08:49
DX: R07.9 Chest pain, unspecified (principal); R06.02 Shortness of breath; Z88.6 Allergy status to analgesic agent; Z91.040 Latex allergy status; Z98.51 Tubal ligation status
CPT/HCPCS: 93005; 99284; 96374; 36415; 85025; 81025; 80053; 81001; 84484; 71045; 93010; J3010

== ENCOUNTER 2019-08-10 08:20 | Emergency (ER) | payer OTHER, MEDICAID ==
[2019-08-10 08:39] VITALS: BP 102/69
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
[2019-08-10] MEDS ORDERED: OXYCODONE-ACETAMINOPHEN 5-325 MG TABLET PO ONE (11:19)
[2019-08-10 12:28] LABS: ABSOLUTE EOSINOPHILS # (AUTO) 0.1 10^3/uL (0.0-0.6); ABSOLUTE LYMPHOCYTES (AUTO) 2.1 10^3/uL (0.5-4.7); ABSOLUTE MONOCYTES (AUTO) 0.7 10^3/uL (0.1-1.4); ABSOLUTE NEUT (AUTO) 11.7 10^3/uL (1.7-8.2); BASOPHILS % (AUTO) 0.3 % (0-2); EOSINOPHILS % (AUTO) 0.4 % (0-6); HEMOGLOBIN 12.8 g/dL (12.0-15.5); LYMPHOCYTES % (AUTO) 14.2 % (13-45); MEAN CORPUSCULAR HEMOGLOBIN 27.2 pg (27.0-33.4); MEAN CORPUSCULAR HGB CONC 33.6 g/dL (32.0-36.0); MEAN CORPUSCULAR VOLUME 81 fl (80-97); MONOCYTES % (AUTO) 4.9 % (3-13); PLATELET COUNT 314 10^3/uL (150-450); RED BLOOD COUNT 4.69 10^6/uL (3.72-5.28); RED CELL DISTRIBUTION WIDTH 14.9 % (11.5-14.0); SEGMENTED NEUTROPHILS % (AUTO) 80.2 % (42-78); TOTAL CELLS COUNTED % (AUTO) 100 %; WHITE BLOOD COUNT 14.6 10^3/uL (4.0-10.5)
[2019-08-10 12:45] LABS: ANION GAP 9 (5-19); BLOOD UREA NITROGEN 4 mg/dL (7-20); CALCIUM 9.7 mg/dL (8.4-10.2); CARBON DIOXIDE 26 mmol/L (22-30); CHLORIDE 105 mmol/L (98-107); GLUCOSE 89 mg/dL (75-110); POTASSIUM 3.8 mmol/L (3.6-5.0)
[2019-08-10 12:58] LABS: APPEARANCE,URINE CLEAR; BILIRUBIN,URINE NEGATIVE (NEGATIVE); COLOR,URINE YELLOW; GLUCOSE, URINE NEGATIVE (NEGATIVE); KETONES,URINE TRACE mg/dL (NEGATIVE); PROTEIN,URINE NEGATIVE (NEGATIVE); URINE SPECIFIC GRAVITY 1.008; UROBILINOGEN,URINE NEGATIVE mg/dL (<2.0)
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
--- NOTE | 2019-08-10 23:50 | EKG REPORT ---
SEVERITY:- ABNORMAL ECG - SINUS RHYTHM NONSPECIFIC T ABNORMALITIES, INFERIOR LEADS : Confirmed by: Que Adler 10-Aug-2019 23:49:43
== END 2019-08-10 14:33 | disposition home or self-care (01) ==
LOC: ER 08:20
DX: S80.01XA Contusion of right knee, initial encounter (principal); S70.212A Abrasion, left hip, initial encounter; S30.811A Abrasion of abdominal wall, initial encounter; S20.312A Abrasion of left front wall of thorax, initial encounter; S00.81XA Abrasion of other part of head, initial encounter; S80.219A Abrasion, unspecified knee, initial encounter; R07.9 Chest pain, unspecified; R10.30 Lower abdominal pain, unspecified; M25.512 Pain in left shoulder; M25.561 Pain in right knee; V43.52XA Car driver injured in collision with other type car in traffic accident, initial encounter; W22.11XA Striking against or struck by driver side automobile airbag, initial encounter; Z87.892 Personal history of anaphylaxis; Z91.018 Allergy to other foods; Z88.7 Allergy status to serum and vaccine; Z88.5 Allergy status to narcotic agent; Z88.6 Allergy status to analgesic agent; Z91.040 Latex allergy status
CPT/HCPCS: 36415; 71260; 72125; 74177; 80048; 81001; 81025; 85025; 93005; 93010; 99285

== ENCOUNTER 2019-08-24 20:03 | Emergency (ER) | payer OTHER, MEDICAID ==
[2019-08-24] MEDS ORDERED: ACETAMINOPHEN 325 MG TABLET PO ONE (21:03)
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
--- NOTE | 2019-08-24 22:06 | RADIOLOGY REPORT (SQ) ---
EXAM DESCRIPTION: XR KNEE 4 OR MORE VIEWS COMPLETED DATE/TME: 08/24/2019 21:03 CLINICAL HISTORY: 34 years, Female, pain and swelling COMPARISON: 08/10/2019 right knee NUMBER OF VIEWS: 4 TECHNIQUE: 4 view right knee LIMITATIONS: None. FINDINGS: Negative for fracture or dislocation. Soft tissues are unremarkable IMPRESSION: Negative exam copyright 2010 [employer]- All Rights Reserved
[2019-08-24 22:28] VITALS: BP 121/72
== END 2019-08-24 22:29 | disposition home or self-care (01) ==
LOC: ER 20:03
DX: S80.01XD Contusion of right knee, subsequent encounter (principal); S30.1XXA Contusion of abdominal wall, initial encounter; V49.9XXA Car occupant (driver) (passenger) injured in unspecified traffic accident, initial encounter; F17.210 Nicotine dependence, cigarettes, uncomplicated; Z87.892 Personal history of anaphylaxis; Z91.018 Allergy to other foods; Z88.7 Allergy status to serum and vaccine; Z88.6 Allergy status to analgesic agent; Z88.5 Allergy status to narcotic agent; Z91.040 Latex allergy status
CPT/HCPCS: 99283

== ENCOUNTER → 2020-06-21 | Outpatient (CLI) | payer MEDICAID ==
--- NOTE | 2020-06-21 14:43 | ER RDC ASSESSMENT REPORT ---
Intake - In the Last 14 days Have you traveled outside [place]?: No Have you been in close contact with someone CONFIRMED: Yes Worked in Healthcare?: No - Symptoms Subjective Fever([place] feverish): No Chills: No Muscule Aches: No Runny Nose: No Sore Throat: No Cough (New or worsening chronic cough): No Shortness of breath: No Nausea or Vomiting: No Headache: No Abdominal Pain: No Diarrhea(3 or more loose stools in last 24 hours): No - Do you have any of the following Chronic lung disease: Asthma or emphysema or COPD: Yes Cystic Fibrosis: No Diabetes: No High Blood Pressure: No Cardiovascular Disease: No Chronic Kidney Disease: No Chronic Liver Disease: No Chronic blood disorder like Sickle Cell Disease: No Weak immune system due to disease or medication: No Neurologic condition that limits movement: No Developmental delay - Moderate to Severe: No Recent (within past 2 weeks) or current : No Morbid Obesity (>100 pounds over ideal weight): No - Objective Temperature: 97.3 F Pulse Rate: 105 Respiratory Rate: 16 Blood Pressure: 118/80 O2 Sat by Pulse Oximetry: 99 Objective: Given above, testing performed: covid Disposition: Home; Selfcare General - General Stated Complaint: covid testing Time Seen by Provider: 06/21/20 14:00 Mode of Arrival: Ambulatory Information source: Patient - HPI Notes: Patient presents to clinic for COVID-19 testing after coming in close contact with another COVID 19 positive individual. Patient is asymptomatic. They deny any cough, shortness of breath, fever, chills, muscle aches, rhinorrhea, sore throat, nausea or vomiting, headache, abdominal pain or diarrhea. Patient has no acute medical concerns. - Related Data Allergies/Adverse Reactions: banana Allergy (Severe, Verified 10/19/16 09:55) Anaphylaxis pertussis vaccine,adsorbed [Pertussis Vaccine,Adsorbed] Allergy (Severe, Verified 10/19/16 09:55) Anaphylaxis hydrocodone bitartrate [From Vicodin] Allergy (Intermediate, Verified 01/20/14 18:09) itching morphine [Morphine] Allergy (Intermediate, Verified 01/20/14 18:09) became hot latex Allergy (Verified 10/19/16 09:55) Generalized rash Past Medical History - General Information source: Patient - Social History Smoking Status: Never Smoker Family History: Reviewed & Not Pertinent, DM, Hypertension - Past Medical History Cardiac Medical History: Reports: Hx Hypertension - preeclampsia with prior Denies: Hx Pulmonary Embolism, Hx Heart Murmur Pulmonary Medical History: Reports: Hx Asthma - as child Denies: Hx Sleep Apnea, Hx Tuberculosis EENT Medical History: Reports: None Neurological Medical History: Reports: Hx Migraine. Denies: Hx Cerebrovascular Accident, Hx Seizures Endocrine Medical History: Reports: None. Denies: Hx Hyperthyroidism, Hx Hypothyroidism Renal/ Medical History: Reports: Hx Ovarian Cysts. Denies: Hx Kidney Stones, Hx Peritoneal Dialysis, Hx Pelvic Inflammatory Disease Malignancy Medical History: Reports: None. Denies: Hx Breast Cancer, Hx Cervical Cancer, Hx Ovarian Cancer GI Medical History: Reports: Hx Gastroesophageal Reflux Disease - during . Denies: Hx Hiatal Hernia, Hx Ulcer Musculoskeletal Medical History: Denies Hx Fibromyalgia, Reports Hx Musculoskeletal Trauma Skin Medical History: Reports None Psychiatric Medical History: Reports: Hx Attention Deficit Hyperactivity Disorder, Hx Bipolar Disorder, Hx Depression Denies: Hx Post Traumatic Stress Disorder, Hx Schizophrenia Traumatic Medical History: Reports: None. Denies: Hx Fractures Infectious Medical History: Reports: None. Denies: Hx HIV, Hx MRSA Past Surgical History: Reports: Hx Section - x2, Hx Tubal Ligation Physical Exam - General General appearance: Appears well, Alert In distress: None Notes: PHYSICAL EXAMINATION: GENERAL: Well-appearing and in no acute distress. HEAD: Atraumatic, normocephalic. EYES: sclera anicteric, conjunctiva are normal. ENT: nares patent. Moist mucous membranes. NECK: Normal range of motion, supple without lymphadenopathy. LUNGS: No increased work of breathing. Lung sounds CTAB and equal. No wheezes rales or rhonchi. HEART: Regular rate and rhythm without murmurs. ABDOMEN: Soft, nontender, normal bowel sounds, no guarding. EXTREMITIES: Normal range of motion, no pitting edema. No cyanosis. NEUROLOGICAL: A&O x 3. Normal speech. PSYCH: Normal mood, normal affect. SKIN: Warm, Dry, normal turgor, no rashes or lesions noted Patient Education/Counseling Counseling/Education: Patient presents for COVID 19 testing after close exposure to another person who has tested positive for COVID 19. Patient is asymptomatic at this time. Patient does not have emergency worrying symptoms such as difficulty breathing, shortness of breath, chest pain, pressure, confusion or cyanosis. Patient appears suitable for discharge as vital signs are stable and patient is nontoxic in appearance. Good return precautions have been discussed with patient, patient verbalized understanding and is agreeable with discharge plan of care at this time. Guidance for worsening S/SX: As a person under investigation for Covid 19, the [facility], division of public health advises you to adhere to the following guidance until your test results are reported to you. If your test result is positive, you will receive additional information from your provider and your local health department at that time. Remain at home until you are cleared by the health provider or public health authorities. Keep a log of visitors to your home, notify any visitors to your home of your isolation status. If you plan to move to a new address or leave the county, notify the local health department in your County. Call your doctor or seek care if you have an urgent medical need. Before seeking medical care, call ahead to get instructions from the provider before arriving at the medical office clinic or hospital. Notify them that you are being tested for the virus that causes Covid 19 so that arrangements can be made, as necessary, to prevent transmission to others in the healthcare setting. Next, notify the local health department in your county. If a medical emergency arises and you need to call 911, inform the first responders that you are being tested for the virus that causes Covid 19. Next, notify the local health department in your county. RDC Discharge - Discharge Clinical Impression: Encounter for screening laboratory testing for COVID-19 virus in asymptomatic patient Condition: Good Disposition: Home; Selfcare
[2020-06-21 14:44] VITALS: BP 118/80
== END ==
LOC: RDC 13:09
PROVIDERS: ATTEND Registered Nurse
DX: Z03.818 Encounter for observation for suspected exposure to other biological agents ruled out (principal)
CPT/HCPCS: 87635; 99201; 99211; C9803